=== PATIENT | female | born 1980 | race Two or more races ===

== ENCOUNTER 2022-08-15 06:14 | Outpatient (CLI) | payer BC | END 2022-08-15 06:25 | disposition home or self-care (01) | LOC: LAB 06:14 | PROVIDERS: ATTEND Obstetrics & Gynecology | DX: D64.9 Anemia, unspecified (principal); E78.5 Hyperlipidemia, unspecified; A50.1 Early congenital syphilis, latent; Z11.4 Encounter for screening for human immunodeficiency virus [HIV]; N80.9 Endometriosis, unspecified; E03.8 Other specified hypothyroidism; E11.9 Type 2 diabetes mellitus without complications; E55.9 Vitamin D deficiency, unspecified; R10.2 Pelvic and perineal pain; N39.0 Urinary tract infection, site not specified; N93.8 Other specified abnormal uterine and vaginal bleeding ==